=== PATIENT | female | born 1945 | race African-American/Black ===

== ENCOUNTER → 2021-12-07 | Day surgery (SDC) | payer MEDICARE, BC ==
[~2021-12-07] VITALS: Ht 147.3 cm; Wt 53.5 kg
[~2021-12-07] MED LIST: ACETAMINOPHEN 325MG TABLET PO PRN; AMLODIPINE 2.5MG TABLET PO SCH; AMLODIPINE 5MG TABLET PO SCH; ASPIRIN/SOD BICARB/CITRIC ACID 324MG TAB EFF ONE; CLONIDINE 0.1MG TABLET PO PRN; FENTANYL CITRATE/PF 50MCG/ML 2ML VIAL ONE; HEPARIN SODIUM 1,000 UNIT/1ML VIAL IV ONE; HYDRALAZINE 20MG/ML VIAL IV PRN; IODIXANOL 320MG/ML 100 ML BOTTLE IV ONE; LOSARTAN POTASSIUM 50 MG TABLET PO NR; MIDAZOLAM HCL 2 MG/2 ML VIAL ONE; MORPHINE SULFATE 2 MG/ML CPJ (NOT FOR IM USE) IV PRN; NALOXONE HCL 0.4MG/ML VIAL IV PRN; NICARDIPINE 100MCG/ML 10ML VIAL (CATH LAB) IV ONE; NITROGLYCERIN 50MCG/ML 10ML VIAL (CATH LAB) IV ONE; ONDANSETRON HCL 4MG/2ML INJ IV PRN
== END | disposition home or self-care (01) ==
LOC: CCL 10:31
PROVIDERS: ATTEND Specialist
DX: I25.10 Atherosclerotic heart disease of native coronary artery without angina pectoris (principal); I10 Essential (primary) hypertension; E78.5 Hyperlipidemia, unspecified; F17.210 Nicotine dependence, cigarettes, uncomplicated; Z79.899 Other long term (current) drug therapy; Z98.890 Other specified postprocedural states; Z82.49 Family history of ischemic heart disease and other diseases of the circulatory system; Z88.6 Allergy status to analgesic agent; Z20.822 Contact with and (suspected) exposure to COVID-19
CPT/HCPCS: 85347; 87426; 93458; 93571; C1769; C1887; C1893; C9803; J0360; J1644; J2250; J3010; J3490; Q9967; 99152; 99153; G0500

== ENCOUNTER → 2021-12-27 | Outpatient (CLI) | payer MEDICARE, BC ==
[~2021-12-27] MED LIST changes: -ACETAMINOPHEN 325MG TABLET PO PRN; -AMLODIPINE 2.5MG TABLET PO SCH; -AMLODIPINE 5MG TABLET PO SCH; +ASCO-316 PO; -ASPIRIN/SOD BICARB/CITRIC ACID 324MG TAB EFF ONE; +ATEN100T PO; +ATOR40TA70 MT; +BIMA2.5D4 EACHEYE; -CLONIDINE 0.1MG TABLET PO PRN; +CYAN100T43 PO; -FENTANYL CITRATE/PF 50MCG/ML 2ML VIAL ONE; +FOLI-43 PO; -HEPARIN SODIUM 1,000 UNIT/1ML VIAL IV ONE; -HYDRALAZINE 20MG/ML VIAL IV PRN; -IODIXANOL 320MG/ML 100 ML BOTTLE IV ONE; +LOSA50TA41 PO; -LOSARTAN POTASSIUM 50 MG TABLET PO NR; -MIDAZOLAM HCL 2 MG/2 ML VIAL ONE; -MORPHINE SULFATE 2 MG/ML CPJ (NOT FOR IM USE) IV PRN; +MYCO500V3 IV; -NALOXONE HCL 0.4MG/ML VIAL IV PRN; -NICARDIPINE 100MCG/ML 10ML VIAL (CATH LAB) IV ONE; -NITROGLYCERIN 50MCG/ML 10ML VIAL (CATH LAB) IV ONE; -ONDANSETRON HCL 4MG/2ML INJ IV PRN; +SERT-112 PO; +TRAM50TA PO; +VITA250012 PO
== END | disposition home or self-care (01) ==
LOC: LAB 10:50
PROVIDERS: ATTEND Specialist
DX: R06.02 Shortness of breath (principal); Z20.822 Contact with and (suspected) exposure to COVID-19
CPT/HCPCS: 87426; C9803

== ENCOUNTER 2021-12-28 07:29 | Inpatient (IN) | payer MEDICARE, BC ==
[~2021-12-28] VITALS: Ht 147.3 cm; Wt 56.9 kg
[2021-12-28] VITALS (7 sets, daily range): BP systolic 114–157; BP diastolic 49–78
[2021-12-28] MEDS ORDERED: ASPIRIN/SOD BICARB/CITRIC ACID 324MG TAB EFF ONE (07:36)
[2021-12-28] MEDS ORDERED: FOLI-43 PO (07:44)
[2021-12-28] MEDS ORDERED: ATOR40TA70 MT (07:44)
[2021-12-28] MEDS ORDERED: MYCO500V3 IV (07:44)
[2021-12-28] MEDS ORDERED: ATEN100T PO (07:44)
[2021-12-28] MEDS ORDERED: VITA250012 PO (07:44)
[2021-12-28] MEDS ORDERED: ASCO-316 PO (07:44)
[2021-12-28] MEDS ORDERED: CYAN100T43 PO (07:44)
[2021-12-28] MEDS ORDERED: SERT-112 PO (07:44)
[2021-12-28] MEDS ORDERED: LOSA50TA41 PO (07:44)
[2021-12-28] MEDS ORDERED: BIMA2.5D4 EACHEYE (07:44)
[2021-12-28] MEDS ORDERED: TRAM50TA PO (07:44)
[2021-12-28] MEDS ORDERED: IODIXANOL 320MG/ML 100 ML BOTTLE IV ONE ×2 (08:18→09:33)
[2021-12-28] MEDS ORDERED: LIDOCAINE HCL/PF 1% 10 MG/ML 5ML VIAL ONE (08:19)
[2021-12-28] MEDS ORDERED: MIDAZOLAM HCL 2 MG/2 ML VIAL ONE (08:19)
[2021-12-28] MEDS ORDERED: FENTANYL CITRATE/PF 50MCG/ML 2ML VIAL ONE (08:19)
[2021-12-28] MEDS ORDERED: HEPARIN 1000 UNITS/ML 10ML ONE (08:30)
[2021-12-28] MEDS ORDERED: NICARDIPINE 100MCG/ML 10ML VIAL (CATH LAB) IV ONE (09:00)
[2021-12-28] MEDS ORDERED: NITROGLYCERIN 50MCG/ML 10ML VIAL (CATH LAB) IV ONE (09:00)
[2021-12-28 09:33] LABS: BASOPHILS % 1.2 % (0.0-2.0); EOSINOPHILS % 5.5 % (0.0-5.0); HEMATOCRIT. 29.6 % (36.0-48.0); HEMOGLOBIN. 9.6 g/dL (12.0-16.0); LYMPHOCYTES % 24.8 % (20.0-50.0); MEAN CORPUSCULAR HEMOGLOBIN 26.1 pg (28.0-32.0); MEAN CORPUSCULAR VOLUME 80.9 fL (81.0-99.0); MEAN PLATELET VOLUME 7.4 fl (7.4-10.4); MONOCYTES % 14.8 % (2.0-8.0); NEUTROPHILS % 53.7 % (40.0-76.0); PLATELET 247 x1000/uL (130-400); RED BLOOD CELL COUNT 3.66 mill/uL (4.2-5.4); RED CELL DISTRIBUTION WIDTH 15.4 % (11.6-14.6)
[2021-12-28 09:37] LABS: TOTAL IRON BINDING CAPACITY 349 ug/dL (250-450)
[2021-12-28] MEDS ORDERED: HYDRALAZINE 20MG/ML VIAL ONE (09:45)
[2021-12-28] MEDS ORDERED: CLOPIDOGREL 75MG TABLET ONE (10:05)
[2021-12-28] MEDS ORDERED: SODIUM CHLORIDE 0.45% 1,000 ML IV ONE (10:30)
[2021-12-28] MEDS ORDERED: MORPHINE SULFATE 2 MG/ML CPJ (NOT FOR IM USE) IV PRN (10:30)
[2021-12-28] MEDS ORDERED: CLOPIDOGREL 75MG TABLET PO ONE (10:30)
[2021-12-28] MEDS ORDERED: ONDANSETRON HCL 4MG/2ML INJ IV PRN (10:30)
[2021-12-28] MEDS ORDERED: ATROPINE SULFATE 1MG/10ML SYR IV PRN (10:30)
[2021-12-28] MEDS: FERROUS SULFATE 325MG TABLET PO SCH ×2 (13:05→16:10)
[2021-12-28] MEDS ORDERED: NALOXONE HCL 0.4MG/ML VIAL IV PRN (15:15)
[2021-12-28] MEDS: PANTOPRAZOLE SODIUM 40 MG/VIAL IV SCH (15:49)
[2021-12-28] MEDS ORDERED: ASCORBIC ACID 500 MG TABLET PO SCH (16:00)
[2021-12-28] MEDS: LOSARTAN POTASSIUM 50 MG TABLET PO SCH (16:10)
[2021-12-28 16:24] LABS: FERRITIN 26 ng/mL (10-291)
[2021-12-28 16:32] LABS: FOLIC ACID (FOLATE) SERUM > 20.00 ng/mL (>5.38); VITAMIN B12 SERUM 1391 pg/mL (211-911)
[2021-12-28] MEDS ORDERED: ATORVASTATIN CALCIUM 40MG TABLET PO SCH (21:00)
[2021-12-28] MEDS: ACETAMINOPHEN 325MG TABLET PO PRN (21:46)
[2021-12-29] VITALS (8 sets, daily range): BP systolic 128–147; BP diastolic 52–69
[2021-12-29 06:16] LABS: BASOPHILS % 0.5 % (0.0-2.0); EOSINOPHILS % 1.2 % (0.0-5.0); HEMATOCRIT. 27.7 % (36.0-48.0); HEMOGLOBIN. 9.1 g/dL (12.0-16.0); LYMPHOCYTES % 8.7 % (20.0-50.0); MEAN CORPUSCULAR HEMOGLOBIN 26.4 pg (28.0-32.0); MEAN CORPUSCULAR VOLUME 80.2 fL (81.0-99.0); MEAN PLATELET VOLUME 7.5 fl (7.4-10.4); MONOCYTES % 14.1 % (2.0-8.0); NEUTROPHILS % 75.5 % (40.0-76.0); PLATELET 218 x1000/uL (130-400); RED BLOOD CELL COUNT 3.45 mill/uL (4.2-5.4); RED CELL DISTRIBUTION WIDTH 15.2 % (11.6-14.6)
[2021-12-29 06:36] LABS: CHLORIDE 104 mEq/L (98-107)
[2021-12-29 07:07] LABS: VITAMIN B12 SERUM 1261 pg/mL (211-911)
[2021-12-29] MEDS: ACETAMINOPHEN 325MG TABLET PO PRN (07:38)
[2021-12-29] MEDS: LOSARTAN POTASSIUM 50 MG TABLET PO SCH (08:36)
[2021-12-29] MEDS: PANTOPRAZOLE SODIUM 40 MG/VIAL IV SCH (08:37)
[2021-12-29] MEDS: FERROUS SULFATE 325MG TABLET PO SCH (08:40)
[2021-12-29] MEDS ORDERED: ATENOLOL 50 MG TABLET PO SCH (09:00)
[2021-12-29] MEDS ORDERED: ASPIRIN 81MG TABLET PO SCH (09:00)
[2021-12-29] MEDS ORDERED: ASCORBIC ACID 500 MG TABLET PO SCH (09:00)
[2021-12-29] MEDS ORDERED: CLOPIDOGREL 75MG TABLET PO SCH (09:00)
== END 2021-12-29 13:50 | disposition home health service (06) | DRG 247 ==
LOC: CCL 07:29 → 5EST 07:30
PROVIDERS: ADMIT Specialist; ATTEND Specialist
PROC: 4A023N7 Measurement of Cardiac Sampling and Pressure, Left Heart, Percutaneous Approach (ICD-10-PCS; principal; 2021-12-28)
PROC: 027034Z Dilation of Coronary Artery, One Artery with Drug-eluting Intraluminal Device, Percutaneous Approach (ICD-10-PCS; 2021-12-28)
PROC: 02F03ZZ Fragmentation in Coronary Artery, One Artery, Percutaneous Approach (ICD-10-PCS; 2021-12-28)
PROC: 4A033BC Measurement of Arterial Pressure, Coronary, Percutaneous Approach (ICD-10-PCS; 2021-12-28)
PROC: B210YZZ Fluoroscopy of Single Coronary Artery using Other Contrast (ICD-10-PCS; 2021-12-28)
DX: I25.10 Atherosclerotic heart disease of native coronary artery without angina pectoris (principal); D61.818 Other pancytopenia; E78.5 Hyperlipidemia, unspecified; I10 Essential (primary) hypertension; I27.20 Pulmonary hypertension, unspecified; L93.0 Discoid lupus erythematosus; F17.210 Nicotine dependence, cigarettes, uncomplicated; D50.9 Iron deficiency anemia, unspecified; I49.3 Ventricular premature depolarization; Z79.02 Long term (current) use of antithrombotics/antiplatelets; Z79.899 Other long term (current) drug therapy
CPT/HCPCS: 36415; 80048; 82607; 82728; 82746; 83540; 83550; 83735; 85025; 87426; 92928; 93005; 93458; 93571; C1760; C1769; C1874; C1887; C1893; C9113; C9803; J0360; J1644; J2250; J2405; J3010; J3490; J7040; Q9967; C1761